=== PATIENT | male | born 1975 | race Caucasian/White ===

== ENCOUNTER 2018-03-05 08:34 | Emergency (ER) ==
[2018-03-05 08:40] VITALS: BP 132/98; TEMP 97.7; BMI 32.9
--- NOTE | 2018-03-05 08:53 | ED.PDOC ---
General ED Provider: Dr. JENELLE SKY Chief Complaint: Foot Pain/Injury Stated Complaint: Fell about 10 to 12 feet onto concrete; feet first then rolled. Pain R foot and ankle Time Seen by Physician: 08:40 Mode of Arrival: Wheelchair Information Source: Patient Primary Care Provider: EARNEST QUIÑONEZ Nursing and Triage Documentation Reviewed and Agree: Yes Does patient meet sepsis criteria?: No System Inflammatory Response Syndrome: Not Applicable Sepsis Protocol: For patient's 13 years and over: Temp is 96.8 and below OR 101 and greater Pulse >90 BPM Resp >20/minute Acutely Altered Mental Status Are patient's symptoms suggestive of a new infection, such as: -Pneumonia -Skin, Soft Tissue -Endocarditis -UTI -Bone, Joint Infection -Implantable Device -Acute Abdominal Infection -Wound Infection -Meningitis -Blood Stream Catheter Infection -Unknown Musculoskeletal Complaint Exam - Ankle/Foot Complaint/Exam Location of Injury: Reports: Right, Ankle, Foot (medial superior aspect of R foot - swelling and possible deformity) Mechanism of Injury: Reports: Trauma (fell approximately 10 to 12 feet onto concrete; landed on feet, rolled to right, skinned R knee and R elbow) 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 Symptoms Are: Reports: Still present Onset of Pain: Reports: Immediate Initial Severity: Severe Current Severity: Severe Location: Reports: Discrete Character: Reports: Throbbing Alleviating: Reports: None Aggravating: Reports: Movement Able to Bear Weight: No (hobbled a few feet initialy after fall) Associated Signs and Symptoms: Reports: Swelling, Bruising Related History: Denies: Similar episode Gout Risk Factors: Reports: None Related Surgical History: Reports: None Lower Extremity Findings: Present: Swelling, Ecchymosis, Abnormal contour, Erythema Achilles Tendon Abnormality: No Limited Range of Motion: Present: Inversion, Eversion, Dorsiflexion, Plantarflexion Differential Diagnosis: Closed Fracture, Open Fracture, Sprain, Strain Review of Systems - Review Of Systems Constitutional: Reports: No symptoms Musculoskeletal: Reports: Joint swelling (R ankle) Skin: Reports: Lesions (Medial R foot) All Other Systems: Reviewed and Negative Past Medical History - Past Medical History Previously Healthy: Yes Endocrine: Reports: None Cardiovascular: Reports: None Respiratory: Reports: None Hematological: Reports: None Gastrointestinal: Reports: None Genitourinary: Reports: None Neuro/Psych: Reports: None Musculoskeletal: Reports: None Cancer: Reports: None - Surgical History General Surgical History: Reports: Hernia Repair - Family History Family History: Reports: None - Social History Smoking Status: Former smoker Hx Substance Use: No Alcohol Screening: None - Immunizations Tetanus Shot up to Date: No (unknown) Physical Exam - Physical Exam Appearance: Well-appearing Pain Distress: Moderate Eyes: JI, EOMI ENT: Ears normal, Nose normal Neck: Supple Respiratory: Airway patent, Breath sounds clear, Breath sounds equal Cardiovascular: RRR, Pulses normal GI/: Soft, Nontender, No masses Musculoskeletal: Normal strength, Limited ROM (R ankle; foot) Skin: Warm, Dry, Normal color (All except affected areas, R ankle, foot, knee and elbow) Neurological: Sensation intact, Motor intact, Alert, Oriented Psychiatric: Affect appropriate, Mood appropriate Interpretation - Radiology Interpretation Radiology Interpretation By: Radiologist Radiology Results: No acute changes (R ankle and R foot) Re-Evaluation - Re-Evaluation Time of Re-Evaluation: 09:25 (Advised negative fracture, R ankle, foot) Status: Unchanged Vital Signs Stable: Yes Critical Care Note - Critical Care Note Total Time (mins): 35 (Traumatic fall) Course - Course Orders, Labs, Meds: Orders Category Date Time Status CRUTCHES [ED CRUTCHES] .ONCE EMERGENCY 03/05/18 09:58 Active Wound [ED WOUND CARE] .ONCE EMERGENCY 03/05/18 09:12 Active Morphine Sulfate [Morphine 2 mg/ml Syringe] MEDS 03/05/18 09:33 Discontinued 2 mg IM ONCE STA Ondansetron [Zofran Odt] MEDS 03/05/18 09:35 Discontinued 4 mg PO ONCE STA Tetanus and Diphtheria Tox/Pf [Tenivac] MEDS 03/05/18 09:32 Discontinued 0.5 ml IM .ONCE ONE ANKLE, RIGHT MIN 3 VIEWS Stat RADS 03/05/18 08:52 Completed FOOT, RIGHT 3 VIEWS Stat RADS 03/05/18 08:52 Completed Medications Discontinued Medications Generic Name Dose Route Start Last Admin Trade Name Freq PRN Reason Stop Dose Admin Morphine Sulfate 2 mg 03/05/18 09:33 03/05/18 10:05 Morphine 2 Mg/Ml Syringe IM 03/05/18 09:34 2 mg ONCE STA Administration Ondansetron HCl 4 mg 03/05/18 09:35 03/05/18 10:04 Zofran Odt PO 03/05/18 09:36 4 mg ONCE STA Administration Tetanus/Diphtheria Toxoids Adsorbed 0.5 ml 03/05/18 09:32 03/05/18 10:07 Tenivac IM 03/05/18 09:33 0.5 ml .ONCE ONE Administration Vital Signs: Temp Pulse Resp BP Pulse Ox 03/05/18 08:34 97.7 F 101 H 20 132/98 H 96 Departure - Departure Time of Disposition: 10:27 Disposition: HOME SELF-CARE Discharge Problem: Strain of foot, right, Abrasion of elbow, right, Abrasion of knee, right Strain of ankle, right Qualifiers: Encounter type: initial encounter Qualified Code(s): S96.911A - Strain of unspecified muscle and tendon at ankle and foot level, right foot, initial encounter Instructions: Ankle Strain (ED) Condition: Stable Pt referred to PMD for follow-up: Yes (call for appointment) IPMP verified?: No (Has prescribed home pain medications already) Additional Instructions: Crutches; weight beat starting tomorrow as tolerated. Elevate foot/let when able today - cold to ankle and fool. next 24 hours when able. Follow up with primary care povider - call for appointment. Use your home pain medications as prescribed. Prescriptions: Cephalexin [Keflex] 500 mg PO Q8HR #20 capsule Allergies/Adverse Reactions: Allergies No Known Drug Allergies Adverse Reaction (Verified 03/05/18 08:41) Home Medications: Ambulatory Orders Alprazolam [Xanax] 0.25 mg PO TID 01/23/16 Atorvastatin Calcium [Lipitor] 40 mg PO DAILY 01/23/16 Oxycodone HCl/Acetaminophen [Percocet 7.5-325 mg Tablet] 1 each PO BID PRN 01/22 Cephalexin [Keflex] 500 mg PO Q8HR #20 capsule 03/05/18
--- NOTE | 2018-03-05 09:20 | DI ---
EXAM: Three views of the right ankle HISTORY: Trauma. COMPARISON: Right foot x-rays same day FINDINGS: The right ankle demonstrates no cortical irregularity or displaced fracture. Soft tissues are unremarkable. There is no lytic or blastic lesion. The joint space is maintained. Limited view s of the structures in the hind foot demonstrate a small calcification anterior to the talus on later al view which is better evaluated on same day foot x-rays. IMPRESSION: No acute abnormality of the right ankle. Small calcification anterior to the talus is better visualized on same day right foot x-rays.
--- NOTE | 2018-03-05 09:22 | DI ---
EXAM: RIGHT FOOT, 3 VIEWS HISTORY: Foot pain, trauma FINDINGS: Bone and joint structures appear normal. No displaced fracture or joint dislocation is s een. There is no joint effusion. Soft tissues within normal limits. IMPRESSION: No fracture or dislocation.
[2018-03-05] MEDS ORDERED: TENIVAC IM ONE (09:32)
[2018-03-05] MEDS ORDERED: MORPHINE 2 MG/ML SYRINGE IM STA (09:33)
[2018-03-05] MEDS ORDERED: ZOFRAN ODT PO STA (09:35)
== END 2018-03-05 10:35 | disposition home or self-care (01) ==
LOC: ED 08:34
DX: S96.911A Strain of unspecified muscle and tendon at ankle and foot level, right foot, initial encounter (principal); S80.211A Abrasion, right knee, initial encounter; S50.311A Abrasion of right elbow, initial encounter; W17.89XA Other fall from one level to another, initial encounter
CPT/HCPCS: 90471; 90714; 96372; 99283

== ENCOUNTER 2018-10-17 09:00 | Outpatient (RCR) ==
--- NOTE | 2018-10-12 08:07 | RS.OPPTEV2 ---
Date of Note: 10/09/18 Visit #: 1 Number of visits approved by Insurance: pending Date of Evaluation: 10/09/18 Payer Source: Insurance Date of Onset/Injury/Change in Status: 03/05/18 (Date of fall) Surgery Performed?: Yes Procedure Performed: ORIF of R foot Treatment Diagnosis: R foot pain, Edema R foot/ankle, decreased ROM R ankle, decreased strength History of Condition/Mechanism of Injury:: pt suffered a fall from a roof landing on feet then fell to R. pt suffered a Lisfranc injury with fractures to R foot s/p ORIF of R foot. 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 Functional Limitations: Standing, Squatting, Ambulation, Community Access/ Integration Current Subjective/complaints:: pt reports he is continuing to have R foot pain limiting his ability to stand/amb to return to work. pt report had a recent surgery to L shld last week. Treatment Side (optional): Right *Precautions: n/a Medical History Medical History: Unremarkable Surgical History Comments:: arthroscopic shld impingement surgery. ORIF R foot with removal of hardware in 06/2018 Smoking Status: Former smoker Hx Home Medications: xanax, lipitor, oxycodone Patient's Goals: decreased R foot pain Pain Assessment - Pain Description Pain Location: R foot Pain Description: Sharp, Aching Current Pain Intensity: 6 Worst Pain Intensity: 8 Functional Outcome Measure LE Functional Scale: 18 - G Codes & Severity Modifier G Codes & Modifier: n/a Source of G Code score: n/a Observation - Observation Inspection: pt with edema R lat ankle and R forefoot. Posture: Forward Head, Rounded Shoulders Girth Measurement Lower: R LE: ankle 33 cm, 29cm forefoot, 29.5cm 10 cm above ankle. L LE: ankle 28cm, 28 cm forefoot, 27 cm 10cm above ankle Gait - Gait Pattern General Gait Pattern Observation: Antalgic Gait Gait Comments: pt amb with antalgic gait pattern, decreased step length and decreased heel strike/toe off gait pattern. General Range of Motion: BUE WFL's except L shld. BLE WFL's except R ankle Muscle Strength: RUE WFL's, LUE not tested due to recent surgery. LLE 5/5. RLE hip flex 5/5, knee flex/ext 4+/5 Ankle ROM: Left WFL's Ankle Muscle Strength: Left WFL's - Right Ankle ROM Right DF with Knee extension: -3 Right Plantarflexion: 27 Right Eversion: 4 Right Inversion: 28 Right Ankle/Foot ROM Limitations: Soft Tissue Tightness, Muscle Weakness, Pain - Right Ankle Strength Right Dorsiflexion: 3- Fair- Right Plantarflexion: 3- Fair- Right Eversion: 3- Fair- Right Inversion: 3- Fair- Palpation Palpation Findings: Tenderness Comments:: pt with pain with palpation R mid foot especially in area of 1st MTP joint Sensation - Sensation Right Upper Extremity: Intact/Normal Left Upper Extremity: Intact/Normal Right Lower Extremity: Intact/Normal Left Lower Extremity: Intact/Normal Balance - Sitting Balance Static Sitting Balance: Normal Dynamic Sitting Balance: Normal - Standing Balance Static Standing Balance: Good Dynamic Standing Balance: Good - Heat/Cryotherapy Treatment: Cryotherapy Comments:: R ankle/foot Interventions - Exercise/Activities/Manual Therapy Exercises/Activities: pt performed isometric R ankle DF/PF, IN/EV, as well as PF with green tband, and gentle heel cord stretching. Manual Therapy: n/a - Charges Timed Code Treatment Minutes: 51 Total Treatment Time: 58 Procedures billed for this date of service:: eval low, ex, CP EVALUATION COMPLEXITY LEVEL EVALUATION COMPLEXITY LEVEL: HISTORY: Low, EXAM OF BODY SYSTEMS: Medium, CLINICAL PRESENTATION: Low, CLINICAL DECISION MAKING: Low Assessment Assessment: pt presents with decreased R ankle ROM, edema R ankle/foot, decreased strength s/p injury and ORIF in 02/2018. Feel pt would benefit from skilled PT for therex for ROM, strengthening as well as modalities to decreased pain and edema. Patient Education: Home Exercise Program, Education of Plan of Care Rehab Potential: Good Short Term Goals Goal #1: pt independent with initial HEP Goal to be met by: 10/23/18 Goal #2: pt with decreased edema R ankle/foot Goal to be met by: 10/23/18 Goal #3: Improve R ankle ROM DF 5, PF 30 ev 10, inversion 30 Goal to be met by: 10/23/18 Health Care Recruiter Goals Goal #1: pt amb community distances with improved heel strike/toe off gait pattern Goal to be met by: 11/09/18 Goal #2: pt R ankle ROM WFL's Goal to be met by: 11/09/18 Goal #3: Decreased edema R ankle/foot Goal to be met by: 11/09/18 Goal #4: pt rate pain R ankle/foot < 5/10 Goal to be met by: 11/09/18 Plan - Treatment to be Provided Procedures: Therapeutic Exercises, Therapeutic Activity, Massage, Patient Education Modalities: Electrical Stimulation, Ultrasound/Phonophoresis, Cryotherapy, Hot Packs - Treatment Plan Frequency: 2-3x week Duration: 4 weeks Dates of Health Care Recruiter Goals: 11/09/18 Expiration date of current Insurance Approval:: n/a - Treatment Code (1) Pain in right ankle and joints of right foot Code(s): M25.571 - PAIN IN RIGHT ANKLE AND JOINTS OF RIGHT FOOT (2) Edema of right ankle Code(s): M25.471 - EFFUSION, RIGHT ANKLE (3) Joint stiffness of right ankle and/or foot Code(s): TLJ3098 - (4) Muscle weakness Code(s): M62.81 - MUSCLE WEAKNESS (GENERALIZED)
--- NOTE | 2018-10-16 09:56 | RS.OPPTDN ---
Subjective Date of Note: 10/16/18 Visit #: 3 Number of visits approved by Insurance: na Date of Evaluation: 10/09/18 Payer Source: Insurance Treatment Diagnosis: R foot pain, Edema R foot/ankle, decreased ROM R ankle, decreased strength Current Subjective/complaints:: Patient c/o soreness to the inside of the R foot extending to the knee from over the weekend. He gives no known reasoning for this elevation. He says u/s seemed to help him after his last session. He admits cold/ice packs relieve pain greatly. He states he will be returning to the MD concerning his L shoulder and anticipates PT for it. *Precautions: n/a - Treatment Modality: Ultrasound Parameters/Method Applied: Pulsed @ 0.6 w/cm2 x 12 mins to the R lateral malleoli and forefoot as well as plantar surf at the MET heads Patient Position: Supine (15 mins surrounding the R foot/ankle after therex) - Heat/Cryotherapy Treatment: Cryotherapy Interventions - Exercise/Activities/Manual Therapy Exercises/Activities: pt receives PROM and gentle stretch for all motions. He performed isometric R ankle DF/PF, IN/EV, as well as PF then, with green tband all motions x 10 and gentle heel cord stretching. Total minutes of Exercise: 18 Manual Therapy: n/a - Charges Timed Code Treatment Minutes: 30 Total Treatment Time: 45 Procedures billed for this date of service:: cp, u/s, ex Assessment: Patient experiencing increased pain to the R foot and ankle mostly at the forefoot and medial arch. He had difficulty rubin manual isometrics for DF and IV with clinician having to readjust hand positioning and pt having to reposition as well. Patient Education: Education of diagnosis, Home Exercise Program, Education of Plan of Care Patient demonstrates compliance with HEP?: Yes Short Term Goals Goal #1: pt independent with initial HEP Goal to be met by: 10/23/18 Progress towards Goal:: Progressing Goal #2: pt with decreased edema R ankle/foot Goal to be met by: 10/23/18 Progress towards Goal:: Progressing Goal #3: Improve R ankle ROM DF 5, PF 30 ev 10, inversion 30 Goal to be met by: 10/23/18 Tablet Machine Operator Goals Goal #1: pt amb community distances with improved heel strike/toe off gait pattern Goal to be met by: 11/09/18 Goal #2: pt R ankle ROM WFL's Goal to be met by: 11/09/18 Goal #3: Decreased edema R ankle/foot Goal to be met by: 11/09/18 Goal #4: pt rate pain R ankle/foot < 5/10 Goal to be met by: 11/09/18 Plan Dates of Alf Goals: 11/09/18 Expiration date of current Insurance Approval:: 11/09/18 PLAN: Patient to continue with modalities and therex to strengthen the R foot.
--- NOTE | 2018-10-16 13:07 | RS.OPPTDN ---
Subjective Date of Note: 10/11/18 Visit #: 2 Number of visits approved by Insurance: [id number] Date of Evaluation: 10/09/18 Payer Source: Insurance Treatment Diagnosis: R foot pain, Edema R foot/ankle, decreased ROM R ankle, decreased strength Current Subjective/complaints:: Patient says he has had some swelling into the R lateral ankle and tenderness over the forefoot. He reports soreness to the ball of the foot. He says he is learning to walk correctly so not to walk on the outside of the foot. *Precautions: n/a - Treatment Modality: Ultrasound Parameters/Method Applied: Pulsed @ 20% 0.6 w/cm2 over the forefoot, lateral malleoli, and MET heads plantar surface x 14 mins. Patient Position: Supine - Heat/Cryotherapy Treatment: Cryotherapy (over the lateral malleoli, forefoot, plantar surface x 15 mins after therex in elevated position) Interventions - Exercise/Activities/Manual Therapy Exercises/Activities: pt received PROM all directions of the R ankle/toes, manual isometrics all directions 2x5. Finished with red tband for all directions 2/10. Total minutes of Exercise: 16 Manual Therapy: n/a - Charges Timed Code Treatment Minutes: 28 Total Treatment Time: 43 Procedures billed for this date of service:: cp, u/s, ex Assessment: Patient appears to rubin all treatment well. He does have tenderness around the R lateral malleoli and forefoot area at the 1,2,3 MET heads. Mild swelling noted at the lateral malleoli as well. Good motion actively in all ranges and with only slight soreness at end range IV/EV. Patient Education: Home Exercise Program, Education of Plan of Care Patient demonstrates compliance with HEP?: Yes Short Term Goals Goal #1: pt independent with initial HEP Goal to be met by: 10/23/18 Progress towards Goal:: Progressing Goal #2: pt with decreased edema R ankle/foot Goal to be met by: 10/23/18 Goal #3: Improve R ankle ROM DF 5, PF 30 ev 10, inversion 30 Goal to be met by: 10/23/18 Cardiovascular Specialist Goals Goal #1: pt amb community distances with improved heel strike/toe off gait pattern Goal to be met by: 11/09/18 Goal #2: pt R ankle ROM WFL's Goal to be met by: 11/09/18 Goal #3: Decreased edema R ankle/foot Goal to be met by: 11/09/18 Goal #4: pt rate pain R ankle/foot < 5/10 Goal to be met by: 11/09/18 Plan Dates of Cardiovascular Specialist Goals: 11/09/18 Expiration date of current Insurance Approval:: 11/09/18 PLAN: Continue with modalities and therex to the R foot/ankle
--- NOTE | 2018-10-17 10:46 | RS.OPPTDN ---
Subjective Date of Note: 10/17/18 Visit #: 4 Number of visits approved by Insurance: [id number] Date of Evaluation: 10/09/18 Payer Source: Insurance Treatment Diagnosis: R foot pain, Edema R foot/ankle, decreased ROM R ankle, decreased strength Current Subjective/complaints:: Patient says he went to the MD concerning his L shoulder. He had orders to discontinue the sling and to begin therapy if he chose to do so. 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 He adds pain to the R lateral ankle and medial arch is better. He is concerned about when he can return to work. *Precautions: n/a - Treatment Modality: Ultrasound Parameters/Method Applied: Pulsed @ 20% 0.6 w/cm2 x 14 mins R lateral malleoli, forefoot, and plantar surface at ball of foot. Patient Position: Supine - Heat/Cryotherapy Treatment: Cryotherapy (surrounding the R foot/ankle/forefoot x 15 mins after therex) Interventions - Exercise/Activities/Manual Therapy Exercises/Activities: pt received PROM all directions of the R ankle/toes, manual isometrics all directions 2x5. Finished with green tband for all directions 2/10. Finished with wobble board all directions. Total minutes of Exercise: 17 Manual Therapy: n/a - Charges Timed Code Treatment Minutes: 31 Total Treatment Time: 46 Procedures billed for this date of service:: cp, ex, u/s Assessment: Patient grimaces with all AROM, manual isometrics, and tband exercises today. He does not verbalize pain, but discomfort. He is able to provide good resistance to isometrics. He was educated on awaiting shoulder PT until we finished with ankle/foot unless he chooses to attend another facility. Patient Education: Education of diagnosis, Home Exercise Program, Education of Plan of Care Patient demonstrates compliance with HEP?: Yes Short Term Goals Goal #1: pt independent with initial HEP Goal to be met by: 10/23/18 Progress towards Goal:: Progressing Goal #2: pt with decreased edema R ankle/foot Goal to be met by: 10/23/18 Goal #3: Improve R ankle ROM DF 5, PF 30 ev 10, inversion 30 Goal to be met by: 10/23/18 Superintendent Division Goals Goal #1: pt amb community distances with improved heel strike/toe off gait pattern Goal to be met by: 11/09/18 Goal #2: pt R ankle ROM WFL's Goal to be met by: 11/09/18 Goal #3: Decreased edema R ankle/foot Goal to be met by: 11/09/18 Goal #4: pt rate pain R ankle/foot < 5/10 Goal to be met by: 11/09/18 Plan Dates of Care Home Goals: 11/09/18 Expiration date of current Insurance Approval:: 11/09/18 PLAN: May modify treatment from u/s to [facility] to gain further swelling and pain relief.
== END 2018-10-18 23:59 ==
PROVIDERS: ATTEND Podiatrist
DX: M72.2 Plantar fascial fibromatosis (principal)

== ENCOUNTER 2018-11-08 08:15 | Outpatient (RCR) ==
--- NOTE | 2018-10-19 11:56 | RS.OPPTDN ---
Subjective Date of Note: 10/19/18 Visit #: 5 Number of visits approved by Insurance: 2-3x4 Date of Evaluation: 10/09/18 Payer Source: Insurance Treatment Diagnosis: R foot pain, Edema R foot/ankle, decreased ROM R ankle, decreased strength Current Subjective/complaints:: Patient says he is sore at the inside of the R foot, but feels treatment is helping because he does not have the soreness to the lateral side. States he is taking pain medication as ordered so that he can progress with exercise. He says he feels his ankle/foot is more stable, but remains tender on the top of his foot pointing to incision. *Precautions: n/a - Treatment Modality: Ultrasound Parameters/Method Applied: Pulsed @ 20% 0.6 w/cm2 x 12 mins to the medial arch and forefoot Patient Position: Supine - Heat/Cryotherapy Treatment: Cryotherapy (wrapped around the R foot/ankle x 15 mins after therex) Interventions - Exercise/Activities/Manual Therapy Exercises/Activities: pt received PROM all directions of the R ankle/toes, manual isometrics all directions 2x5. Finished with progression to blue tband for all directions 2/10. Finished with wobble board all directions. Total minutes of Exercise: 17 Manual Therapy: n/a - Charges Timed Code Treatment Minutes: 29 Total Treatment Time: 44 Procedures billed for this date of service:: cp, u/s, ex Assessment: Patient appears to be responding as he has had less pain to the lateral portion of the R foot and experiencing more stability. Pain is more evident now to the medial aspect of the foot with pain also present at the dorsal aspect along the incision, navicular. Alexy progression to blue tband well with only discomfort instead of pain. Improved ease of Active IV/EV on wobble board compared to recent visit. Patient Education: Education of diagnosis, Home Exercise Program, Education of Plan of Care Patient demonstrates compliance with HEP?: Yes Short Term Goals Goal #1: pt independent with initial HEP Goal to be met by: 10/23/18 Progress towards Goal:: Progressing Goal #2: pt with decreased edema R ankle/foot Goal to be met by: 10/23/18 Progress towards Goal:: Progressing Goal #3: Improve R ankle ROM DF 5, PF 30 ev 10, inversion 30 Goal to be met by: 10/23/18 Progress towards Goal:: Progressing Retail Service Lead Merchandiser Goals Goal #1: pt amb community distances with improved heel strike/toe off gait pattern Goal to be met by: 11/09/18 Goal #2: pt R ankle ROM WFL's Goal to be met by: 11/09/18 Goal #3: Decreased edema R ankle/foot Goal to be met by: 11/09/18 Goal #4: pt rate pain R ankle/foot < 5/10 Goal to be met by: 11/09/18 Plan Dates of Residential Goals: 11/09/18 Expiration date of current Insurance Approval:: 11/09/18 PLAN: Patient to continue for treatment to the R foot.
--- NOTE | 2018-10-22 11:55 | RS.OPPTDN ---
Subjective Date of Note: 10/22/18 Visit #: 6 Number of visits approved by Insurance: na Date of Evaluation: 10/09/18 Payer Source: Insurance Treatment Diagnosis: R foot pain, Edema R foot/ankle, decreased ROM R ankle, decreased strength Current Subjective/complaints:: Patient says he had driven a side by side over the weekend for about 1 hour and reports more pain to the inside and top of his foot reporting mostly above the 1st, 2nd, and 3rd toes. He says this pain nearlly caused him to go to the Orthopaedic walk in[facility]. Reports he is taking pain meds every 4 hours. *Precautions: n/a - Treatment Modality: Ultrasound Parameters/Method Applied: Pulsed @ 20% 0.6 w/cm2 x 12 mins to the R medial arch , dorsal aspect of the forefoot Patient Position: Supine - Heat/Cryotherapy Treatment: Cryotherapy (surrounding the R foot medially and lateral malleoli and dorsum) Interventions - Exercise/Activities/Manual Therapy Exercises/Activities: pt received PROM all directions of the R ankle/toes, manual isometrics all directions 2x5. Finished with progression to blue tband. Wobble board all directions. Standing on thick foam for weight shifting L to R and then anterior/posterior x 10 reps with requiring intermittent hand holding onto wall for support. Ended with cold pack. Total minutes of Exercise: 22 Manual Therapy: n/a - Charges Timed Code Treatment Minutes: 37 Total Treatment Time: 37 Procedures billed for this date of service:: cp, u/s, ex Assessment: Patient experiencing elevated pain to the R foot following ~ 1 [address] side by side. He has been performing HEP and using ice for pain control. Pain is no longer to the lateral portion of the foot, however he remains with slight swelling to the lateral malleoli. He has mild tenderness to the medial arch. He appears to rubin ROM activities with some facial grimacing , but reports no pain. He did progress with blue tband all directions. Standing therex rubin well maintaining good bal. Patient Education: Education of diagnosis, Home Exercise Program, Activity Modification, Education of Plan of Care Patient demonstrates compliance with HEP?: Yes Short Term Goals Goal #1: pt independent with initial HEP Goal to be met by: 10/23/18 Progress towards Goal:: Progressing Goal #2: pt with decreased edema R ankle/foot Goal to be met by: 10/23/18 Progress towards Goal:: Progressing Goal #3: Improve R ankle ROM DF 5, PF 30 ev 10, inversion 30 Goal to be met by: 10/23/18 Progress towards Goal:: Progressing Mcfp Goals Goal #1: pt amb community distances with improved heel strike/toe off gait pattern Goal to be met by: 11/09/18 Goal #2: pt R ankle ROM WFL's Goal to be met by: 11/09/18 Goal #3: Decreased edema R ankle/foot Goal to be met by: 11/09/18 Goal #4: pt rate pain R ankle/foot < 5/10 Goal to be met by: 11/09/18 Plan Dates of Project Manager Entertainment And Media Goals: 11/09/18 Expiration date of current Insurance Approval:: 11/09/18 PLAN: Patient to continue TIW to progress ROM and strength
--- NOTE | 2018-10-24 10:29 | RS.OPPTDN ---
Subjective Date of Note: 10/24/18 Visit #: 7 Number of visits approved by Insurance: [id number] Date of Evaluation: 10/09/18 Payer Source: Insurance Treatment Diagnosis: R foot pain, Edema R foot/ankle, decreased ROM R ankle, decreased strength Current Subjective/complaints:: Patient says he believes his ankle is improving having less swelling and improved mobility as the day progresses. He says it is stiff and sore first thing in the morning, but he takes a pain pill and then comes to PT sessions, goes home and then takes another pain pill and naps. States he has been able to now sleep for 5 hours without awakening to pain and needing to take medication. He says a few weeks ago he was awakening every 3 hours. He reports he works on [employer] at home to further strengthen the foot to prepare to return to work. *Precautions: n/a - Treatment Modality: Ultrasound Parameters/Method Applied: Pulsed @ 20% 0.6 w/cm2 x 12 mins to the R medial arch and dorsal aspect of the foot at 1,2, 3 forefoot. Patient Position: Supine - Heat/Cryotherapy Treatment: Cryotherapy (surrounding the R ankle and forefoot/medial arch after therex x 15 mins) Interventions - Exercise/Activities/Manual Therapy Exercises/Activities: pt received PROM and gentle stretching all directions of the R ankle/toes, manual isometrics all directions 2x5. Blue tband all dir R ankle 2x10. Isometric bilateral IV using ball between ankles 2x10. Wobble board all directions. Standing on thick foam for weight shifting L to R and then anterior/posterior x 10 reps with requiring intermittent hand holding onto wall for support. Began minisquats x 5 slowly on foam. All standing therex performed with shoes on. Ended with cold pack. Total minutes of Exercise: 25 Manual Therapy: n/a - Charges Timed Code Treatment Minutes: 37 Total Treatment Time: 52 Procedures billed for this date of service:: cp, u/s, ex2 Assessment: Patient has had improved pain level, requiring less pain medication , improved sleep (~5 hours before awakened to pain), increased mobility, and swelling has been reduced at the R lateral malleoli. He has been able to perform progressed therex in the dept using tbands and altered surface standing activities without difficulty. Only mild fatigue with standing weight shifting and closed chain exercises. He requires cueing to place heel down and toe push off during amb and when departing PT. Will measure Monday. 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 Patient to attend TIW then return to ortho 11/05/18.
--- NOTE | 2018-10-26 14:05 | RS.CXNS ---
Date of scheduled appointment: 10/26/18 Type: Cancel Reason for Cancel/NS: Says he has gotten new orthotics for his foot and he says he is having more pain.
--- NOTE | 2018-10-31 14:15 | RS.CXNS ---
Date of scheduled appointment: 10/31/18 Type: Cancel Reason for Cancel/NS: Patient calls at [phone] for 900 appt rescheduling for the afternoon. Calls at 155 cancelling for 200 appt due to bowel troubles. Rescheduled for tomorrow @ 300.
--- NOTE | 2018-11-01 16:16 | RS.OPPTDN ---
Subjective Date of Note: 11/01/18 Visit #: 9 Number of visits approved by Insurance: [id number] complete by 11/09/18 Date of Evaluation: 10/09/18 Payer Source: Insurance Treatment Diagnosis: R foot pain, Edema R foot/ankle, decreased ROM R ankle, decreased strength Current Subjective/complaints:: Patient says he has tried orthotics per MD and SLOT FLOOR ATTENDANT recommendation beginning ~30-40 mins in his rubber boots "the other day." He says he continues to ice, but he is still battling swelling and pain with WBing and walking. *Precautions: n/a - Treatment Modality: Electrical Stim Unattended Parameters/Method Applied: 2 small pads and 2 large pads hivolt x 265-325 pk volts x 20 mins Patient Position: Supine - Heat/Cryotherapy Treatment: Cryotherapy (with estim x 20 mins) Interventions - Exercise/Activities/Manual Therapy Exercises/Activities: pt received PROM and gentle stretching all directions of the R ankle/toes, manual isometrics all directions 2x5. Blue tband all dir R ankle 2x10. Isometric bilateral IV using ball between ankles 2x10. Wobble board all directions. Gave blue tband for home use.Instructed again in heel strike to improve normal gait pattern. Patient voices understanding to work on this at home. Measurements taken. Total minutes of Exercise: 17 Manual Therapy: n/a - Objective Findings Observations,measurements,etc.: INV: 29 degrees (28 at eval). EV: 9 degrees (4 at eval). PF: 30 degrees (27 at eval). DF: neutral (-3 at eval). 4-/ 5 MMT grossly to the R ankle, (3- at eval) - Charges Timed Code Treatment Minutes: 17 Total Treatment Time: 37 Procedures billed for this date of service:: cp, estim (un), ex Assessment: Patient does demo slight improvement with ROM overall to the R ankle. Slight decrease in swelling noted at the forefoot by 0.5 cm from eval. He continues with unchanged edema at the malleoli. He has difficulty with rubin orthotics, but is easing back into trying them per our recommendations. He is eager to return to work and will attend MD ortho follow up November 05. 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 Ordaz 11/05/18. He has 3 remaining sessions to be completed by 11/09/18.
--- NOTE | 2018-11-05 10:33 | RS.OPPTDN ---
Subjective Date of Note: 11/05/18 Visit #: 11 Number of visits approved by Insurance: 12 Date of Evaluation: 10/09/18 Payer Source: Insurance Treatment Diagnosis: R foot pain, Edema R foot/ankle, decreased ROM R ankle, decreased strength Current Subjective/complaints:: Patient says he was able to walk around outside and wash his side by side over the weekend x 3 hours without difficulty. He is weaning into wearing his orthotics currently. His sleep is disturbed greatly only sleeping 3-4 hours a night and when he awakens, he will take pain meds and xanax prn. He says it is getting easier for him to stand for prolonged period and trying to be conscientious about heel strike and push off. *Precautions: n/a - Treatment Modality: Electrical Stim Unattended Parameters/Method Applied: 2 small electrodes, 2 large crossed over the R ankle and foot hivolt x 285-300 pk volts x 20 mins with ice Patient Position: Supine - Heat/Cryotherapy Treatment: Cryotherapy Interventions - Exercise/Activities/Manual Therapy Exercises/Activities: pt received PROM and gentle stretching all directions of the R ankle/toes, manual isometrics all directions 2x5. Blue tband all dir R ankle 2x10. Isometric bilateral IV using ball between ankles 2x10. Began treadmill slow speed to instruct and perform heel strike and toe off with also instructed on pt to place foot in neutral for correct gait instead of hip ER. Treadmill @ 0.6 mph x 2 mins. Patient completed LE Fucntional Scale to compare to eval. Total minutes of Exercise: 17 Manual Therapy: n/a - Charges Timed Code Treatment Minutes: 17 Total Treatment Time: 37 Procedures billed for this date of service:: cp, estim (un), ex Assessment: Patient demo decreased swelling surrounding the R ankle and forefoot. Patient demo improved ROM actively and rubin blue tband easier. Increased pain noted with correct gait instruction/performance on treadmill needing to stop once after ~1 min, but wants to continue. Correctived cues for neutral R LE avoiding ER and for heel strike, toe off. Patient able to perform and correct. 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 He is eager to return to work and is hopeful he will be able to do so with slowly getting used to his work boots and orthotics for preparation. 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 Goal #1: pt amb community distances with improved heel strike/toe off gait pattern Goal to be met by: 11/09/18 Progress towards goal: Progressing Goal #2: pt R ankle ROM WFL's Goal to be met by: 11/09/18 Progress towards goal: Progressing Goal #3: Decreased edema R ankle/foot Goal to be met by: 11/09/18 Progress towards goal: Progressing Goal #4: pt rate pain R ankle/foot < 5/10 Goal to be met by: 11/09/18 Progress towards goal: Progressing Plan Dates of Printing Supervisor Goals: 11/09/18 Expiration date of current Insurance Approval:: 11/09/18 PLAN: Patient to return to ortho today at 11:00. He has 1 remaining session on current order.
--- NOTE | 2018-11-07 13:25 | RS.CXNS ---
Date of scheduled appointment: 11/07/18 Type: Cancel Reason for Cancel/NS: foot swollen
--- NOTE | 2018-11-08 10:18 | RS.OPPTDN ---
Subjective Date of Note: 11/08/18 Visit #: 12 Number of visits approved by Insurance: 12 Date of Evaluation: 10/09/18 Payer Source: Insurance Treatment Diagnosis: R foot pain, Edema R foot/ankle, decreased ROM R ankle, decreased strength Current Subjective/complaints:: Patient says that Monday he had increased swelling and pain that he could barely remove his shoe. States he was wearing his orthotics, but remain difficult to rubin. He is taking 2-3 pain meds ~3-4 hours. States he would like to wean off of them, but he is not able to deal with the ankle pain. He says he is disappointed about probably not returning to work on Monday. States he has been out of work since last November and needs to return. C/o medial arch pain and "hardness" that he says has been there since his surgery. States he is able to see improvement with general strength and mobility, but he wants to obtain more in prep for job duties. *Precautions: n/a - Treatment Modality: Electrical Stim Unattended Parameters/Method Applied: Hivolt 2 small, 2 large electrodes @ 365-400 pk volts surrounding the R ankle and dorsum of foot. AFTER therex Patient Position: Supine - Heat/Cryotherapy Treatment: Cryotherapy Comments:: concurrent with estim Interventions - Exercise/Activities/Manual Therapy Exercises/Activities: pt received PROM and stretching all directions of the R ankle/toes, manual isometrics all directions 2x8. Blue tband all dir R ankle 2x15. Isometric bilateral IV using ball between ankles 2x10. Patient received modalities after therex due to increased c/o pain/swelling. Patient strongly encouraged to continue ROM and strengthening exercises at home as well as edema control, use of orthotics until ortho tells him otherwise, and to continue with proper gait pattern (and avoiding hip ER). Lengthy discussion of possible expectations following todays session in regards to therapy and larger home/ yard tasks as well as TENS unit. Discussed proper body mechanics, and therapy POC. Total minutes of Exercise: 17 Manual Therapy: n/a - Charges Timed Code Treatment Minutes: 35 with discussion Total Treatment Time: 55 Procedures billed for this date of service:: cp, estim (un), ex Assessment: Patient demo mild increase in swelling to the medial arch and to the lateral malleoli region. Sensitivity to the medial arch along the incision. Patient has difficulty rubin orthotics, but does try to use them. He is eager to return to work, but concerned about tasks and whether he can complete them effectively. He is able to demo slight improvement with all ranges and does have relief with modalities. He offers to use his TENS unit at home after discharge, but did let him know the differences with TENS and estim. Patient Education: Education of diagnosis, Body/Joint mechanics, Home Exercise Program, Home Safety, Activity Modification, Education of Plan of Care Patient demonstrates compliance with HEP?: Yes Short Term Goals Goal #1: pt independent with initial HEP Goal to be met by: 10/23/18 Progress towards Goal:: Met Goal #2: pt with decreased edema R ankle/foot Goal to be met by: 10/23/18 Progress towards Goal:: Met Goal #3: Improve R ankle ROM DF 5, PF 30 ev 10, inversion 30 Goal to be met by: 10/23/18 Progress towards Goal:: Progressing Assisted Goals Goal #1: pt amb community distances with improved heel strike/toe off gait pattern Goal to be met by: 11/09/18 Progress towards goal: Progressing Goal #2: pt R ankle ROM WFL's Goal to be met by: 11/09/18 Progress towards goal: Progressing Goal #3: Decreased edema R ankle/foot Goal to be met by: 11/09/18 Progress towards goal: Progressing Goal #4: pt rate pain R ankle/foot < 5/10 Goal to be met by: 11/09/18 Progress towards goal: Progressing Plan Dates of Galley Hand Goals: 11/09/18 Expiration date of current Insurance Approval:: 11/09/18 PLAN: Patient has completed POC. To follow up with ortho tomorrow afternoon.
== END 2018-11-18 23:59 ==
PROVIDERS: ATTEND Podiatrist
DX: M72.2 Plantar fascial fibromatosis (principal)

== ENCOUNTER 2018-12-14 09:00 | Outpatient (RCR) ==
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
--- NOTE | 2018-12-05 10:00 | RS.OPPTDN ---
Subjective Date of Note: 12/05/18 Visit #: 2 Number of visits approved by Insurance: na Date of Evaluation: 12/03/18 Payer Source: Insurance Treatment Diagnosis: Left shoulder pain, shoulder stiffness, s/p Arthroscopic shoulder surgery Current Subjective/complaints:: Patient reports the pain is elevated today at rest or while up walking. Pain Assessment - Pain Description Pain Location: L shoulder Pain Description: Sharp, Dull, Aching Current Pain Intensity: 9/10 Other Comments regarding Pain:: sharp at times ,dependent upon positioning of the L UE - Treatment Modality: Ultrasound Parameters/Method Applied: 10 mins. @ 1.5 w/cm2 ,cont. mode to L shoulder. - Heat/Cryotherapy Treatment: Hot Pack (20 mins. prior to US and exercise) Interventions - Exercise/Activities/Manual Therapy Exercises/Activities: 20 mins. , Patient received stretching and passive AAROM to the left shoulder in all directions. Total minutes of Exercise: 20 Manual Therapy: n/a Total minutes of Manual Therapy: 0 HOME EXERCISE PROGRAM: pendulum, scapular retraction, resisted ER with green theraband, AAROM with wand for flexion and RTC series in a PAIN-FREE range. - Charges Timed Code Treatment Minutes: 30 Total Treatment Time: 60 Procedures billed for this date of service:: hp,US,ex,cp Assessment: Patient needs cues to relax ,has facial grimacing present with passive motion ,especially past 90 degrees elevation.He has soft end feel present for abduction and IR,moderate firm end feel for ER ,but this is possibly due to muscle guarding present. Patient Education: Education of diagnosis, Body/Joint mechanics, Home Exercise Program, Home Safety, Activity Modification, Education of Plan of Care Patient demonstrates compliance with HEP?: Yes Short Term Goals Goal #1: pt independent with initial HEP. Goal to be met by: 12/17/18 Progress towards Goal:: Progressing Goal #2: Left shoulder PROM WFL's. Goal to be met by: 12/17/18 Progress towards Goal:: Progressing Goal #3: Left shoulder AROM 75% of normal range. Goal to be met by: 12/17/18 Goal #4: Left serratus anterior strength 4+/5. Goal to be met by: 12/17/18 Care Home Goals Goal #1: Pt knows HEP and to continue ex's to maintain functional level at D/c. Goal to be met by: 01/07/19 Goal #2: Score on UE functional scale improved to 60/80. Goal to be met by: 01/07/19 Goal #3: LUE AROM WFL's to perform all ADL's and selfcare. Goal to be met by: 01/07/19 Goal #4: Left shoulder strength 4+/5 throughout. Goal to be met by: 01/07/19 Plan Dates of Case Packer And Sealer Goals: 01/07/19 Expiration date of current Insurance Approval:: na PLAN: Cont. skilled PT to increase ROM ,strength with minimal or no pain.
--- NOTE | 2018-12-07 10:11 | RS.OPPTDN ---
Subjective Date of Note: 12/07/18 Visit #: 3 Number of visits approved by Insurance: na Date of Evaluation: 12/03/18 Payer Source: Insurance Treatment Diagnosis: Left shoulder pain, shoulder stiffness, s/p Arthroscopic shoulder surgery Current Subjective/complaints:: Patient reports the L shoulder pain is slightly less than at last visit.His sleep pattern is still about 3-4 hours at a time due to pain. Pain Assessment - Pain Description Pain Location: L shoulder Pain Description: Sharp, Aching, Chronic Current Pain Intensity: /10 - Treatment Modality: Ultrasound Parameters/Method Applied: 10 mins. @ 1.5 w/cm2 ,continuous mode. Patient Position: Sitting - Heat/Cryotherapy Treatment: Hot Pack (20 mins. prior to US and ex) Interventions - Exercise/Activities/Manual Therapy Exercises/Activities: 20 mins. total of PROM all directions,AROM of scapular rowing motion ,ER ,3/15 each.HEP review. Total minutes of Exercise: 20 Manual Therapy: n/a Total minutes of Manual Therapy: 0 HOME EXERCISE PROGRAM: pendulum, scapular retraction, resisted ER with green theraband, AAROM with wand for flexion and RTC series in a PAIN-FREE range. - Charges Timed Code Treatment Minutes: 30 Total Treatment Time: 60 Procedures billed for this date of service:: ho,US,ex ,cp Assessment: Patient tolerates the passive stretches vbetter today.He still reports increased pain with AROM,also unable to rest on the L side ,sleeping about 3-4 hours at a time. Patient Education: Education of diagnosis, Body/Joint mechanics, Home Exercise Program, Home Safety, Activity Modification, Education of Plan of Care Patient demonstrates compliance with HEP?: Yes Short Term Goals Goal #1: pt independent with initial HEP. Goal to be met by: 12/17/18 Progress towards Goal:: Progressing Goal #2: Left shoulder PROM WFL's. Goal to be met by: 12/17/18 Progress towards Goal:: Progressing Goal #3: Left shoulder AROM 75% of normal range. Goal to be met by: 12/17/18 Progress towards Goal:: Progressing Goal #4: Left serratus anterior strength 4+/5. Goal to be met by: 12/17/18 Progress towards Goal:: Progressing Chcf Goals Goal #1: Pt knows HEP and to continue ex's to maintain functional level at D/c. Goal to be met by: 01/07/19 Goal #2: Score on UE functional scale improved to 60/80. Goal to be met by: 01/07/19 Goal #3: LUE AROM WFL's to perform all ADL's and selfcare. Goal to be met by: 01/07/19 Goal #4: Left shoulder strength 4+/5 throughout. Goal to be met by: 01/07/19 Plan Dates of Reading Professor Goals: 01/07/19 Expiration date of current Insurance Approval:: na PLAN: Cont. skilled to maximize strength and motion in the L shoulder without pain.
--- NOTE | 2018-12-10 09:59 | RS.OPPTDN ---
Subjective Date of Note: 12/10/18 Visit #: 4 Number of visits approved by Insurance: NA Date of Evaluation: 12/03/18 Payer Source: Insurance Treatment Diagnosis: Left shoulder pain, shoulder stiffness, s/p Arthroscopic shoulder surgery Current Subjective/complaints:: Patient feels the L shoulder is moving better, but the pain is about the same. Pain Assessment - Pain Description Pain Location: L shoulder Pain Description: Dull, Aching, Chronic Current Pain Intensity: 7/10 - Treatment Modality: Ultrasound Parameters/Method Applied: 10 mins.@ 1.5 w/cm2 .continuus mode to L shoulder Patient Position: Sitting - Heat/Cryotherapy Treatment: Hot Pack (20 mins. prior to US and exercises) Interventions - Exercise/Activities/Manual Therapy Exercises/Activities: 30 mins. total of PROM all directions,AROM of scapular rowing motion ,ER ,3/15 each.Wand exercises in reclined and sitting position for elevation and scaption. Total minutes of Exercise: 30 Manual Therapy: n/a Total minutes of Manual Therapy: 0 HOME EXERCISE PROGRAM: pendulum, scapular retraction, resisted ER with green theraband, AAROM with wand for flexion and RTC series in a PAIN-FREE range. - Charges Timed Code Treatment Minutes: 30 Total Treatment Time: 60 Procedures billed for this date of service:: hp,US,ex 2,cp Assessment: Patient has increased PROM and AROM today,but continues to reports the pain in the posterior aspect of the shoulder ,just below the acromion process. Patient Education: Body/Joint mechanics, Home Exercise Program, Home Safety Patient demonstrates compliance with HEP?: Yes Short Term Goals Goal #1: pt independent with initial HEP. Goal to be met by: 12/17/18 Progress towards Goal:: Progressing Goal #2: Left shoulder PROM WFL's. Goal to be met by: 12/17/18 Progress towards Goal:: Progressing Goal #3: Left shoulder AROM 75% of normal range. Goal to be met by: 12/17/18 Progress towards Goal:: Progressing Goal #4: Left serratus anterior strength 4+/5. Goal to be met by: 12/17/18 Progress towards Goal:: Progressing Warp Worker Goals Goal #1: Pt knows HEP and to continue ex's to maintain functional level at D/c. Goal to be met by: 01/07/19 Progress towards goal: Progressing Goal #2: Score on UE functional scale improved to 60/80. Goal to be met by: 01/07/19 Goal #3: LUE AROM WFL's to perform all ADL's and selfcare. Goal to be met by: 01/07/19 Goal #4: Left shoulder strength 4+/5 throughout. Goal to be met by: 01/07/19 Plan Dates of Skilled Nursing Goals: 01/07/19 Expiration date of current Insurance Approval:: na PLAN: Cont. skilled PT to improve motion with minimal to no pain present in the L shoulder .
--- NOTE | 2018-12-12 10:18 | RS.OPPTDN ---
Subjective Date of Note: 12/12/18 Visit #: 5 Number of visits approved by Insurance: na Date of Evaluation: 12/03/18 Payer Source: Insurance Treatment Diagnosis: Left shoulder pain, shoulder stiffness, s/p Arthroscopic shoulder surgery Current Subjective/complaints:: Patient reports the pain is unchanged ,still rates it @ /10 consistently. Pain Assessment - Pain Description Pain Location: L shoulder Pain Description: Sharp, Dull, Aching, Chronic Current Pain Intensity: 02/27 - Treatment Modality: Ultrasound Parameters/Method Applied: 10 mins. @ 1.5 w/cm2 ,cont. mode to L shoulder. - Heat/Cryotherapy Treatment: Hot Pack (20 mins. prior to US and ex) Interventions - Exercise/Activities/Manual Therapy Exercises/Activities: 20 mins. total 3# wand exercises in reclined position today for chest press and scapular protraction ,overhead elevation,IR /ER in scapular plane .HEP review. Total minutes of Exercise: 20 Manual Therapy: n/a Total minutes of Manual Therapy: 0 HOME EXERCISE PROGRAM: pendulum, scapular retraction, resisted ER with green theraband, AAROM with wand for flexion and RTC series in a PAIN-FREE range. - Charges Timed Code Treatment Minutes: 30 Total Treatment Time: 60 Procedures billed for this date of service:: hp,US,ex,cp Assessment: Patient has improved form for motion when using the wand,as the R UE is assisting the L .He does have facial grimacing today with all motions .Patient again reminded to do exercises in PAIN FREE ROM. Patient Education: Education of diagnosis, Body/Joint mechanics, Home Exercise Program, Home Safety, Activity Modification, Education of Plan of Care Patient demonstrates compliance with HEP?: Yes Short Term Goals Goal #1: pt independent with initial HEP. Goal to be met by: 12/17/18 Progress towards Goal:: Progressing Goal #2: Left shoulder PROM WFL's. Goal to be met by: 12/17/18 Progress towards Goal:: Progressing Goal #3: Left shoulder AROM 75% of normal range. Goal to be met by: 12/17/18 Progress towards Goal:: Progressing Goal #4: Left serratus anterior strength 4+/5. Goal to be met by: 12/17/18 Progress towards Goal:: Progressing Half-Way Goals Goal #1: Pt knows HEP and to continue ex's to maintain functional level at D/c. Goal to be met by: 01/07/19 Progress towards goal: Progressing Goal #2: Score on UE functional scale improved to 60/80. Goal to be met by: 01/07/19 Goal #3: LUE AROM WFL's to perform all ADL's and selfcare. Goal to be met by: 01/07/19 Goal #4: Left shoulder strength 4+/5 throughout. Goal to be met by: 01/07/19 Plan Dates of Convertible Top Installer Goals: 01/07/19 Expiration date of current Insurance Approval:: na PLAN: Cont. skilled PT to strengthen and increase motion in the L shoulder, return to PLOF.
--- NOTE | 2018-12-14 10:27 | RS.OPPTDC ---
Date of Discharge: 12/14/18 Date of Evaluation: 12/03/18 Number of Visits: 6 Treatment Diagnosis: Left shoulder pain, shoulder stiffness, s/p Arthroscopic shoulder surgery Current Level of Function: Patient plans to return to work light duty ,requests D/C today.He has good understanding of HEP. Pain Assessment - Pain Description Pain Location: L shoulder Pain Description: Dull, Aching, Chronic Current Pain Intensity: 7/10 Functional Outcome Measure UE Functional Index: 39 - G Codes & Severity Modifier G Codes & Modifier: na Source of G Code score: na Observation - Observation Posture: Forward Head, Rounded Shoulders Gait - Gait Pattern General Gait Pattern Observation: No Deviations/Normal - Treatment Modality: Ultrasound Parameters/Method Applied: 10 mnis. @ 1.5 w/cm2 to L shoulder Patient Position: Sitting - Heat/Cryotherapy Treatment: Hot Pack, Cryotherapy Interventions - Exercise/Activities/Manual Therapy Exercises/Activities: 20 mins. total 3# wand exercises in reclined position today for chest press and scapular protraction ,overhead elevation,IR /ER in scapular plane .HEP review. Total minutes of Exercise: 200 Manual Therapy: n/a HOME EXERCISE PROGRAM: pendulum, scapular retraction, resisted ER with green theraband, AAROM with wand for flexion and RTC series in a PAIN-FREE range. - Charges Timed Code Treatment Minutes: 30 Total Treatment Time: 60 Procedures billed for this date of service:: hp,US,ex,cp Assessment Assessment: Patient has improve motion and strength ,but the pain remains.He has HEP to be done independently,is returning to work light duty. Patient Education: Education of diagnosis, Body/Joint mechanics, Home Exercise Program, Home Safety, Activity Modification, Education of Plan of Care Rehab Potential: Good Short Term Goals Goal #1: pt independent with initial HEP. Goal to be met by: 12/17/18 Progress towards Goal:: Met Goal #2: Left shoulder PROM WFL's. Goal to be met by: 12/17/18 Progress towards Goal:: Met Goal #3: Left shoulder AROM 75% of normal range. Goal to be met by: 12/17/18 (65%) Progress towards Goal:: Progressing Goal #4: Left serratus anterior strength 4+/5. Goal to be met by: 12/17/18 Progress towards Goal:: Met Color Developer Goals Goal #1: Pt knows HEP and to continue ex's to maintain functional level at D/c. Goal to be met by: 01/07/19 Progress towards goal: Met Goal #2: Score on UE functional scale improved to 60/80. Goal to be met by: 01/07/19 (39) Progress towards goal: Progressing Goal #3: LUE AROM WFL's to perform all ADL's and selfcare. Goal to be met by: 01/07/19 Progress towards goal: Progressing Goal #4: Left shoulder strength 4+/5 throughout. Goal to be met by: 01/07/19 Progress towards goal: Progressing Plan Reason for Discharge:: Self-Discharge (Patient returning to work light duty.He reports he spoke with Dr. Brantley regarding his work.)
== END 2018-12-18 23:59 ==
PROVIDERS: ATTEND Orthopaedic Surgery
DX: Z98.890 Other specified postprocedural states (principal); M25.512 Pain in left shoulder; M25.612 Stiffness of left shoulder, not elsewhere classified